=== PATIENT | male | born 1955 | race Caucasian/White ===

== ENCOUNTER 2018-05-25 06:26 | Observation (INO) | payer MEDICAID ==
--- NOTE | 2018-05-25 06:38 | EDPHY ---
H & P Stated Complaint: COPD-excerbation Time Seen by Provider: 05/25/18 06:38 - Personal History Current Tetanus Diphtheria and Acellular Pertussis (TDAP): Yes - Medical/Surgical History Hx Asthma: Yes Hx Chronic Respiratory Disease: Yes Hx Diabetes: No Hx Cardiac Disease: Yes Hx Renal Disease: No Hx Cirrhosis: No Hx Alcoholism: No Hx HIV/AIDS: No Hx Splenectomy or Spleen Trauma: No Other PMH: COPD, CHF, Back injury, hernia repair, kidney stones, appendectomy - Social History Smoking Status: Heavy smoker Constitutional: Initial Vital Signs Temperature (C) 36.6 C 05/25/18 06:31 Heart Rate 74 05/25/18 06:31 Respiratory Rate 16 05/25/18 06:31 Blood Pressure 208/124 H 05/25/18 06:31 O2 Sat (%) 94 05/25/18 06:31 O2 Delivery Mode Room Air Allergies/Adverse Reactions: Penicillins Allergy (Verified 05/25/18 06:30) tramadol Allergy (Verified 05/25/18 06:30) Home Medications: Medication Instructions Recorded Albuterol 05/25/18 Lisinopril 05/25/18 Prednisone 05/25/18 Spiriva Inhaler (RX) 05/25/18 oxyCODONE CR 05/25/18 Medical Decision Making - Diagnostics Imaging Results: Imaging Impressions Chest X-Ray 05/25/18 06:47 Impression: 1. Hyperexpanded lungs with peribronchial thickening suggesting COPD. 2. Basilar atelectasis. 3. Moderate age-indeterminate compression fracture at T7. ED Course/Re-evaluation: CHIEF COMPLAINT: COPD exacerbation HISTORY OF PRESENT ILLNESS: 62-year-old gentleman with severe COPD who is noncompliant with his steroid inhalers. He is also noncompliant with his lisinopril blood pressure medicine. This patient was seen at [facility] about a week ago for COPD exacerbation. He is on prednisone 40 mg currently. He was in the area watching the and company and was having more more difficulty breathing. He presented here to the emergency department. He denies fevers or chills. He denies any cough. He states [facility] did not put him on any antibiotics. He is also being seen for a right ohara wound that is healing well. He admits to being significantly noncompliant with most of his medicines but he is using his albuterol rescue inhaler which she has been using consistently and he has been taking 40 mg of prednisone daily consistently REVIEW OF SYSTEMS: A 10 point review of systems was performed and is negative with the exception of the elements mentioned in the history of present illness. PHYSICAL EXAM: HR, BP, O2 Sat, RR. Temp noted General Appearance: Alert, well hydrated, appropriate, and non-toxic appearing. Head: Atraumatic without scalp tenderness or obvious injury Eyes: Pupils equal, round, reactive to light and accommodation, EOMI, no trauma , no injection. Ears: Clear bilaterally, no perforation, normal landmarks Nose: Atraumatic, no rhinorrhea, clear. Throat: There is no erythema or exudates, no lesions, normal tonsils, mucus membranes moist. Neck: Supple, 2+ carotid upstroke, nontender, no lymphadenopathy. Respiratory: No retractions, no distress, prolonged expiratory phase with end- expiratory wheezing. No evidence of decrease breath sounds or bronchitic sounds. Cardiovascular: Regular rate and rhythm, no murmurs, rubs, or gallops. Bilateral carotid, radial, dorsalis pedis, and posterior tibial pulses intact. Good capillary refill all extremities. Gastrointestinal: Abdomen is soft, nontender, non-distended, no masses, no rebound, no guarding, no peritoneal signs. Musculoskeletal: Normal active ROM of all extremities, atraumatic. Neurological: Alert, appropriate, and interactive. The patient has normal DTRs and non-focal cranial nerves, motor, sensory, and cerebellar exam. Skin: No rashes, good turgor, no nodules on palpation. Past medical history: COPD, hypertension, known PVCs but he has not been compliant with treatment Past surgical history: Noncontributory Family history: Coronary artery disease Social history: Apparently lives in [place], noncompliant with meds, unemployed , not , smokes cigarettes socially a bunch recent DIAGNOSTICS/PROCEDURES/CRITICAL CARE TIME: Study: PA and Lateral Chest X-ray Indication: COPD exacerbation Results: After viewing the images myself on the PACS system. My interpretation of the images is: no acute process. The radiologist interpretation is negative for acute findings. The 12 lead EKG was interpreted by myself. See hard copy and/or "tracemaster" electronic copy for interpretation. Sinus mechanism with Q waves inferiorly. DIFFERENTIAL DIAGNOSIS: The differential diagnosis for the patient's shortness of breath and hypoxemia included but was not limited to pneumonia, myocardial infarction, acute mountain sickness, high altitude pulmonary edema, congestive heart failure, and pulmonary embolus. MEDICAL DECISION MAKING: This patient is a ready on 40 of prednisone daily for several days. He has also is maximizing out his albuterol inhaler. He also has numerous PVCs on the monitor as I examined him. He also has a diastolic blood pressure of approaching 130. He has a chronic pain patient and he is out of pain and I will treat his pain to see if his blood pressure comes down. He is also noncompliant with his lisinopril and I will give him that. Additionally , since he has been on steroids for several days I will not add any additional steroids. Chest x-ray is pending but this patient has no infectious symptoms. Patient has been here at the [facility] shows smoking many cigarettes and marijuana. Patient is chronically noncompliant and has been seen at [facility] recently. This patient requires admission for hypoxemia, hypertensive urgency, COPD exacerbation, and multiple PVCs Dr. Burr has kindly accepted the patient for admission. - Data Points Medications Given: Lisinopril (Zestril) 20 mg PO DAILY LÓPEZ Stop: 11/21/18 08:59 Last Admin: 05/25/18 08:01 Dose: 20 mg Discontinued Medications Albuterol/Ipratropium (Duoneb) 3 ml IH EDNOW ONE Stop: 05/25/18 06:48 Last Admin: 05/25/18 08:00 Dose: 3 ml Oxycodone HCl (Oxycodone Ir) 15 mg PO EDNOW ONE Stop: 05/25/18 07:31 Last Admin: 05/25/18 08:01 Dose: 15 mg Departure - Departure Disposition: [facility] Inpatient Acute Clinical Impression: Hypoxemia, Hypertensive urgency, COPD exacerbation, PVCs (premature ventricular contractions) Condition: Fair Report Scribed for: Rigoberto Montague Report Scribed by: Pily Thompson Date of Report: 05/25/18 Time of Report: 07:27
[2018-05-25] MEDS ORDERED: IPRATROPIUM/ALBUTEROL 3 ML DEYVIAL IH ONE (06:47)
[2018-05-25] MEDS ORDERED: ALBUTEROL 3 ML DEYVIAL IH PRN (07:00)
[2018-05-25] MEDS ORDERED: ACETAMINOPHEN 325 MG TAB PO PRN (07:00)
[2018-05-25] MEDS ORDERED: ONDANSETRON DISINTEGRATING 4 MG TAB PO PRN (07:00)
[2018-05-25] MEDS ORDERED: ONDANSETRON 4 MG/2 ML VIAL IVP PRN (07:00)
--- NOTE | 2018-05-25 07:25 | CPEKG ---
Heart Rate: 84 RR Interval: 714 P-R Interval: 156 QRSD Interval: 118 QT Interval: 424 QTC Interval: 502 P [place]: 39 QRS [place]: 79 T Wave [place]: 2 EKG Severity - ABNORMAL ECG - EKG Impression: SINUS RHYTHM EKG Impression: NONSPECIFIC INTRAVENTRICULAR CONDUCTION DELAY EKG Impression: PROBABLE INFERIOR INFARCT, AGE INDETERMINATE Electronically Signed By: Eufemia Enamorado 26-May-2018 08:02:32
[2018-05-25] MEDS ORDERED: oxyCODONE IR 15 MG TAB PO ONE (07:30)
[2018-05-25 07:36] LABS: PLATELET COUNT 117 10^3/uL (150-400)
--- NOTE | 2018-05-25 07:50 | PDGENHP ---
History and Physical - Chief Complaint Shortness of breath - History of Present Illness 62 yo M w/ hx of COPD and HTN presents with BEEBE and fatigue. Patient went to the concert last night in town and tells me his "head wrote a check his body couldn't zambrano". He took several hits of LSD, smoked lots of marijuana as well as hashish. He is currently under treatment for a recent COPD exacerbation with prednisone and albuterol. He finished a course of azithromycin. He came to the ED this morning because he was feeling dyspneic and fatigued. Upon arrival in the ED he was found to be mildly hypoxic and also have a mild wheeze. CXR shows possible infiltrate in RLL but WBC normal and he is afebrile. He feels improved after a nebulizer treatment but does not feel able to leave the hospital. Case discussed with ED physician Dr. Montague. History Information - Allergies/Home Medication List Allergies/Adverse Reactions: Penicillins Allergy (Verified 05/25/18 06:30) tramadol Allergy (Verified 05/25/18 06:30) Home Medications: Albuterol 05/25/18 [Last Taken Unknown] Lisinopril 05/25/18 [Last Taken Unknown] Prednisone 05/25/18 [Last Taken Unknown] Spiriva Inhaler (RX) 05/25/18 [Last Taken Unknown] oxyCODONE CR 05/25/18 [Last Taken Unknown] I have personally reviewed and updated: family history, medical history - Past Medical History COPD, hypertension - Surgical History Reports: appendectomy, hernia repair - Family History Additional family history: Kidney stones - Social History Smoking Status: Heavy smoker Review of Systems Review of Systems: ROS: 10pt was reviewed & negative except for what was stated in HPI & below Physical Exam Physical Exam: Temp Pulse Resp BP Pulse Ox 36.6 C 74 16 208/124 H 94 05/25/18 06:31 05/25/18 06:31 05/25/18 06:31 05/25/18 06:31 05/25/18 06:31 Constitutional: no apparent distress, not in pain Eyes: PERRL, EOMI Ears, Nose, Mouth, Throat: moist mucous membranes, no oral mucosal ulcers Cardiovascular: regular rate and rhythym, no murmur, rub, or gallop Respiratory: no respiratory distress, expiratory wheeze Gastrointestinal: normoactive bowel sounds, soft, non-tender abdomen Skin: warm, normal color Musculoskeletal: full muscle strength, no muscle tenderness Neurologic: AAOx3, CN II-XII Intact Psychiatric: interacting appropriately, not anxious Lab Data & Imaging Review 05/25/18 07:25 05/25/18 07:25 WBC 7.29 10^3/uL (3.80-9.50) 05/25/18 07:25 RBC 5.27 10^6/uL (4.40-6.38) 05/25/18 07:25 Hgb 16.3 g/dL (13.7-17.5) 05/25/18 07:25 Hct 49.2 % (40.0-51.0) 05/25/18 07:25 MCV 93.4 fL (81.5-99.8) 05/25/18 07:25 MCH 30.9 pg (27.9-34.1) 05/25/18 07:25 MCHC 33.1 g/dL (32.4-36.7) 05/25/18 07:25 RDW 13.9 % (11.5-15.2) 05/25/18 07:25 Plt Count 117 10^3/uL (150-400) L 05/25/18 07:25 MPV 12.1 fL (8.7-11.7) H 05/25/18 07:25 Neut % (Auto) 73.6 % (39.3-74.2) 05/25/18 07:25 Lymph % (Auto) 14.7 % (15.0-45.0) L 05/25/18 07:25 [place] % (Auto) 8.8 % (4.5-13.0) 05/25/18 07:25 Eos % (Auto) 2.1 % (0.6-7.6) 05/25/18 07:25 Baso % (Auto) 0.3 % (0.3-1.7) 05/25/18 07:25 Nucleat RBC Rel Count 0.0 % (0.0-0.2) 05/25/18 07:25 Absolute Neuts (auto) 5.37 10^3/uL (1.70-6.50) 05/25/18 07:25 Absolute Lymphs (auto) 1.07 10^3/uL (1.00-3.00) 05/25/18 07:25 Absolute Monos (auto) 0.64 10^3/uL (0.30-0.80) 05/25/18 07:25 Absolute Eos (auto) 0.15 10^3/uL (0.03-0.40) 05/25/18 07:25 Absolute Basos (auto) 0.02 10^3/uL (0.02-0.10) 05/25/18 07:25 Absolute Nucleated RBC 0.00 10^3/uL (0-0.01) 05/25/18 07:25 Immature Gran % 0.5 % (0.0-1.1) 05/25/18 07:25 Immature Gran # 0.04 10^3/uL (0.00-0.10) 05/25/18 07:25 Visualized and Interpreted Chest x-ray results: Yes Chest X-Ray results: other (Possible infiltrate RML/RLL) Visualized and Interpreted EKG results: Yes EKG Interpretation: Positive for: other (IVCD) Assessment & Plan Assessment: 62 yo M w/ HTN and COPD p/w shortness of breath likely 2/2 sub-acute COPD exacerbation. Plan: 1. Sub-acute COPD exacerbation - Patient was initially placed on treatment for COPD exacerbation in [place] 1 week ago. He finished a course of azithromycin and prednisone and has been using his albuterol inhaler. Last night he smoked marijuana, hash, and took LSD, which likely exacerbated his symptoms. CXR shows possible infiltrate RML/RLL but patients does not have symptoms of pneumonia and is s/p course of azithromycin. He has no SIRS criteria currently. - Admit for observation - Duonebs QID oneyda, albuterol q2h PRN - Will continue prednisone for now, may require a taper; s/p azithromycin course so will not repeat - Encourage smoking cessation and compliance with Spiriva, which he does not like to take - Will check procalcitonin to consider possibility of pneumonia 2. HTN - Elevated initially w/ SBP>200 in the setting of acute distress but improved to SBP 160's with breathing treatment and time. - Continue home medications, neds med reconciliation Diet - Regular Code - Full Ppx - LMWH Dispo - Admit under observation status
[2018-05-25] MEDS ORDERED: oxyCODONE IR 5 MG TAB ONE (07:57)
[2018-05-25] MEDS ORDERED: LISINOPRIL 20 MG TAB ONE (07:58)
[2018-05-25] MEDS ORDERED: predniSONE 20 MG TAB ONE (08:02)
[2018-05-25] MEDS ORDERED: ENOXAPARIN 40 MG/0.4 ML SYR SC SCH (09:00)
[2018-05-25] MEDS ORDERED: LISINOPRIL 20 MG TAB PO SCH (09:00)
[2018-05-25] MEDS ORDERED: predniSONE 20 MG TAB PO SCH (09:00)
[2018-05-25] MEDS: IPRATROPIUM/ALBUTEROL 3 ML DEYVIAL IH SCH ×2 (11:32→16:27)
[2018-05-25] MEDS ORDERED: hydrALAZINE 20 MG/ML VIAL IVP PRN (15:12)
[2018-05-25 15:53] VITALS: BP 161/75
[2018-05-25] MEDS ORDERED: oxyCODONE IR 15 MG TAB PO PRN (19:46)
[2018-05-25] MEDS ORDERED: tiZANidine HCL 2 MG TAB PO PRN (19:46)
--- NOTE | 2018-05-25 19:52 | HOSPPROG ---
Hospitalist Progress Note Assessment/Plan: Recurrent acute COPD exacerbation Polysubstance abuse Obesity Tobacco dependence HTN, accelerated -SVNs, steroid, O2. -Pt received Zpack recently, it should still be in his system. -Counseled pt on smoking cessation. -BP med scheduled and prn. Likely increased HTN from steroid/COPD exacerbation. -Consider to DC to home tomorrow if resp status has improved, w/ a steroid taper. -This pt is new to me. Objective: Vital Signs Temp Pulse Resp BP Pulse Ox 36.6 C 51 L 18 161/75 H 93 05/25/18 15:53 05/25/18 15:53 05/25/18 15:53 05/25/18 15:53 05/25/18 15:53 Laboratory Results 05/25/18 07:25 05/25/18 07:25 Gen: obese male, alert, NAD. Resp: +mild b/l exp wheezing. CV - RRR. ICD10 Worksheet Patient Problems: Problems Problem Status Onset COPD exacerbation Acute Hypertensive urgency Acute Hypoxemia Acute PVCs (premature ventricular contractions) Acute
--- NOTE | 2018-05-25 19:54 | PDDCSUM ---
Discharge Summary Discharge Summary: Patient was unhappy about pain control of his chronic lower back pain. His home medication dosages were offered. He wanted to be discharged and decided to leave against medical advice. His main risk at discharge is worsening COPD exacerbation, but he is willing to assume that risk. Please see H&P for full outline of presentation details.
== END 2018-05-25 20:00 | disposition left against medical advice (07) ==
LOC: F3E 09:23
PROVIDERS: ADMIT Student in an Organized Health Care Education/Training Program; ATTEND Student in an Organized Health Care Education/Training Program
DX: J44.1 Chronic obstructive pulmonary disease with (acute) exacerbation (principal); I10 Essential (primary) hypertension; I49.3 Ventricular premature depolarization; M54.5 Low back pain; F17.210 Nicotine dependence, cigarettes, uncomplicated; E66.9 Obesity, unspecified; Z68.38 Body mass index [BMI] 38.0-38.9, adult; Z88.0 Allergy status to penicillin; Z91.14 Patient's other noncompliance with medication regimen
CPT/HCPCS: 71046; 93005; G0378; J1650; J7512